=== PATIENT | male | born 1990 | race Caucasian/White ===

== ENCOUNTER 2018-08-13 13:34 | Observation (INO) | payer OTHER ==
[~2018-08-13] VITALS: Ht 167.6 cm; Wt 141.5 kg
[2018-08-13] MEDS ORDERED: IV NORMAL SALINE 1000ML BAG 1,000 ML IV ONE (15:45)
--- NOTE | 2018-08-13 15:50 | PHYS DOC ---
Past Medical History Past Medical History: Bipolar, Hypertension, Other Additional Past Medical Histor: ALLERGIES Past Surgical History: Appendectomy Alcohol Use: Occasionally Drug Use: None Adult General Chief Complaint Chief Complaint: DIZZY/LIGHT HEADED HPI HPI 27-year-old male presents to ER with complaints of dizziness, headache, and ringing in his ears which started this morning and has been progressively worsening. Patient reports symptoms were sudden in onset this morning denies any other family members ill at home. Patient states he has had positional dizziness denies vision changes, chest pain, or palpitations. Patient denies nausea or vomiting. Patient reports he had pretzels for breakfast and has been drinking water denies large caffeine intake. Patient reports 2 months ago he was started on propranolol 60 mg pain blood pressure issues and bloody nose. Patient denies any bloody nose today. Patient denies daily smoking. 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 Orthostatic vital signs obtained during initial exam by this provider: Supine BP 143/80 HR 74 Sitting BP 152/94 HR 95 Standing BP 152/100 HR 94 Review of Systems Review of Systems Constitutional: Denies fever or chills. Reports generalized fatigue Eyes: Denies change in visual acuity, redness, or eye pain [] HENT: Denies nasal congestion or sore throat. Reports ringing in his ears Respiratory: Denies cough or shortness of breath [] Cardiovascular: Denies chest pain or palpitations GI: Denies abdominal pain, nausea, vomiting, bloody stools or diarrhea [] : Denies dysuria or hematuria [] Musculoskeletal: Denies back/neck pain or joint pain [] Integument: Denies rash, swelling or skin lesions [] Neurologic: Denies focal weakness or sensory changes. Reports headache with dizziness which increases with position changes All other systems were reviewed and found to be within normal limits, except as documented in this note. Current Medications Current Medications Current Medications Medications (Trade) Dose Ordered Sig/Ro Start Time Stop Time Status Last Admin Dose Admin Sodium Chloride 1,000 ml @ 1,000 mls/hr 1X ONCE 08/13/18 15:45 08/13/18 16:44 DC 08/13/18 15:47 1,000 MLS/HR Allergies Allergies Allergies Coded Allergies Type Severity Reaction Last Updated Verified No Known Drug Allergies 08/13/18 No Physical Exam Physical Exam Constitutional: Well developed, well nourished, no acute distress, non-toxic appearance. [] HENT: Normocephalic, atraumatic, bilateral external ears normal, oropharynx moist, no oral exudates, nose normal. [] Eyes: PERRLA, EOMI, conjunctiva normal, no discharge. [] Neck: Normal range of motion, no tenderness, supple, no stridor. [] Cardiovascular:Heart rate regular rhythm, no murmur [] Lungs & Thorax: Bilateral breath sounds clear to auscultation [] Abdomen: Bowel sounds normal, soft, no tenderness, no masses, no pulsatile masses. [] Skin: Warm, dry, no erythema, no rash. [] Back: No tenderness, no CVA tenderness. [] Extremities: No tenderness, no cyanosis, no clubbing, ROM intact, no edema. [] Neurologic: Alert and oriented X 3, normal motor function, normal sensory function, no focal deficits noted. [] Psychologic: Affect normal, judgement normal, mood normal. [] Current Patient Data Vital Signs Vital Signs Date Time Temp Pulse Resp B/P (MAP) Pulse Ox O2 Delivery O2 Flow Rate FiO2 08/13/18 14:05 98.8 76 20 120/79 (93) 95 Room Air 98.8 Lab Values Laboratory Tests Test 08/13/18 14:44 08/13/18 15:32 08/13/18 15:38 Urine Collection Type Unknown Urine Color Yellow Urine Clarity Clear Urine pH 7.0 Urine Specific [place] 1.025 Urine Protein Negative mg/dL (NEG-TRACE) Urine Glucose (UA) Negative mg/dL (NEG) Urine Ketones (Stick) Negative mg/dL (NEG) Urine Blood Negative (NEG) Urine Nitrite Negative (NEG) Urine Bilirubin Negative (NEG) Urine Urobilinogen Dipstick 0.2 mg/dL (0.2 mg/dL) Urine Leukocyte Esterase Negative (NEG) Urine RBC 0 /HPF (0-2) Urine WBC 0 /HPF (0-4) Urine Squamous Epithelial Cells Occ /LPF Urine Bacteria 0 /HPF (0-FEW) Urine Mucus Marked /LPF Sodium Level 142 mmol/L (136-145) Potassium Level 4.3 mmol/L (3.5-5.1) Chloride Level 103 mmol/L (98-107) Carbon Dioxide Level 26 mmol/L (21-32) Anion Gap 13 (6-14) Blood Urea Nitrogen 15 mg/dL (8-26) Creatinine 0.9 mg/dL (0.7-1.3) Estimated GFR (Cockcroft-Gault) 102.0 BUN/Creatinine Ratio 17 (6-20) Glucose Level 90 mg/dL (70-99) Calcium Level 9.5 mg/dL (8.5-10.1) Magnesium Level 2.1 mg/dL (1.8-2.4) Total Bilirubin 0.4 mg/dL (0.2-1.0) Aspartate Amino Transferase (AST) 25 U/L (15-37) Alanine Aminotransferase (ALT) 39 U/L (16-63) Alkaline Phosphatase 57 U/L (46-116) Troponin I Quantitative < 0.017 ng/mL (0.000-0.055) Total Protein 7.6 g/dL (6.4-8.2) Albumin 4.2 g/dL (3.4-5.0) Albumin/Globulin Ratio 1.2 (1.0-1.7) White Blood Count 9.4 x10^3/uL (4.0-11.0) Red Blood Count 4.77 x10^6/uL (4.30-5.70) Hemoglobin 14.1 g/dL (13.0-17.5) Hematocrit 42.0 % (39.0-53.0) Mean Corpuscular Volume 88 fL (79-100) Mean Corpuscular Hemoglobin 30 pg (25-35) Mean Corpuscular Hemoglobin Concent 34 g/dL (31-37) Red Cell Distribution Width 13.3 % (11.5-14.5) Platelet Count 259 x10^3/uL (140-400) Neutrophils (%) (Auto) 66 % (31-73) Lymphocytes (%) (Auto) 26 % (24-48) Monocytes (%) (Auto) 6 % (0-9) Eosinophils (%) (Auto) 2 % (0-3) Basophils (%) (Auto) 1 % (0-3) Neutrophils # (Auto) 6.2 x10^3uL (1.8-7.7) Lymphocytes # (Auto) 2.4 x10^3/uL (1.0-4.8) Monocytes # (Auto) 0.6 x10^3/uL (0.0-1.1) Eosinophils # (Auto) 0.1 x10^3/uL (0.0-0.7) Basophils # (Auto) 0.1 x10^3/uL (0.0-0.2) Influenza Type A Antigen Negative (NEGATIVE) Influenza Type B Antigen Negative (NEGATIVE) Laboratory Tests 08/13/18 15:32 Laboratory Tests 08/13/18 14:44 EKG EKG EKG obtained 08/13/18 at [address] Thomas Sinus rhythm Leftward axis Rate 72 Radiology/Procedures Radiology/Procedures PROCEDURE: CT HEAD WO CONTRAST Examination: CT HEAD WO CONTRAST History: IRENE, DIZZINESS, NO PRIORS Comparison/Correlation: None Findings: Axial images of the head were obtained without contrast. Ventricles are normal size. No intracranial hemorrhage, midline shift, or mass effect. Bony structures are intact. Impression: Normal CT head without contrast exam. Electronically signed by: Ernie Marquez MD (08/13/2018 5:03 PM) [facility] DICTATED and SIGNED BY: JERICA MUKHERJEE MD DATE: 08/13/18 170 Course & Med Decision Making Course & Med Decision Making Pertinent Labs and Imaging studies reviewed. (See chart for details) 1630: On reevaluation following IV fluids patient reports he had minimal relief in symptoms. Patient states he is still not feeling right with intermittent dizziness. Patient has improved facial skin tone as he was flushed during initial exam. Will obtain head CT and admission was offered for further monitoring. Both patient and his are considering this option. Since patient has only had pretzels today will provide snacks and fluids and see if symptoms improve with that. 1750: Discussed CT head results with pt and his with no acute findings. Pt remains A&Ox3 with no focal neuro deficits. He voices concerns on his ongoing "feeling off" and "not right" although he has had some improvement in sxs w/IV flds and after eating. He reports he still is having some dizziness denying vision changes. Spoke with Dr. Davenport, hospitalist and discussed pt's case and admit plan. Liya Disclaimer Liya Disclaimer This electronic medical record was generated, in whole or in part, using a voice recognition dictation system. Departure Departure Impression: Primary Impression: Orthostatic dizziness Disposition: ADMITTED INPATIENT Admitting Physician: Betty Davenport Condition: STABLE Referrals: UNKNOWN PCP NAME (PCP) OUMAR COON APRN Aug 13, 2018 15:50
[2018-08-13 15:54] LABS: BASO # 0.1 x10^3/uL (0.0-0.2); BASO % 1 % (0-3); EOS # 0.1 x10^3/uL (0.0-0.7); EOS % 2 % (0-3); HEMOGLOBIN 14.1 g/dL (13.0-17.5); LYMPH # 2.4 x10^3/uL (1.0-4.8); LYMPH % 26 % (24-48); MEAN CORPUSCULAR HEMOGLOBIN 30 pg (25-35); MEAN CORPUSCULAR HGB CONC 34 g/dL (31-37); MEAN CORPUSCULAR VOLUME 88 fL (79-100); MONO # 0.6 x10^3/uL (0.0-1.1); MONO % 6 % (0-9); NEUT # 6.2 x10^3uL (1.8-7.7); NEUT % 66 % (31-73); PLATELET COUNT 259 x10^3/uL (140-400); RED BLOOD COUNT 4.77 x10^6/uL (4.30-5.70); RED CELL DISTRIBUTION WIDTH 13.3 % (11.5-14.5); WHITE BLOOD COUNT 9.4 x10^3/uL (4.0-11.0)
[2018-08-13 15:56] LABS: BILIRUBIN,URINE NEGATIVE (NEG); CLARITY,URINE CLEAR; COLOR,URINE YELLOW; NITRITE,URINE NEGATIVE (NEG); PROTEIN,URINE NEGATIVE (NEG-TRACE); UROBILINOGEN,URINE 0.2 mg/dL (0.2 mg/dL)
--- NOTE | 2018-08-13 16:01 | EKG ---
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
[2018-08-13 16:06] LABS: CALCIUM 9.5 mg/dL (8.5-10.1); CREATININE 0.9 mg/dL (0.7-1.3); POTASSIUM 4.3 mmol/L (3.5-5.1)
[2018-08-13 16:07] LABS: BACTERIA,URINE 0 /HPF (0-FEW); RBC,URINE 0 /HPF (0-2); SQUAMOUS EPITHELIAL CELL,UR OCC /LPF; WBC,URINE 0 /HPF (0-4)
[2018-08-13 16:17] LABS: ALBUMIN 4.2 g/dL (3.4-5.0); ALBUMIN/GLOBULIN RATIO 1.2 (1.0-1.7); MAGNESIUM 2.1 mg/dL (1.8-2.4); TOTAL BILIRUBIN 0.4 mg/dL (0.2-1.0); TOTAL PROTEIN 7.6 g/dL (6.4-8.2)
[2018-08-13 16:19] LABS: INFLUENZA A PATIENT NEGATIVE (NEGATIVE); INFLUENZA B PATIENT NEGATIVE (NEGATIVE)
--- NOTE | 2018-08-13 17:07 | RAD ---
Examination: CT HEAD WO CONTRAST History: IRENE, DIZZINESS, NO PRIORS Comparison/Correlation: None Findings: Axial images of the head were obtained without contrast. Ventricles are normal size. No intracranial hemorrhage, midline shift, or mass effect. Bony structures are intact. Impression: Normal CT head without contrast exam. Electronically signed by: Ernie Marquez MD (08/13/2018 5:03 PM) [facility]
[2018-08-13] MEDS: IV NORMAL SALINE 1000ML BAG 1,000 ML IV SCH (21:09)
[2018-08-13] MEDS: ACETAMINOPHEN 500 MG TABLET PO PRN (21:09)
[2018-08-13] MEDS ORDERED: FLUO40CA2 PO (22:17)
[2018-08-13] MEDS ORDERED: LAMO100T PO (22:17)
[2018-08-13] MEDS ORDERED: PROP60CA PO (22:17)
[2018-08-13] MEDS ORDERED: CETI10TA16 PO (22:17)
[2018-08-13 23:06] VITALS: BP 126/64
--- NOTE | 2018-08-13 23:19 | HP ---
ADMIT DATE: 08/13/2018 CHIEF COMPLAINT: Dizziness. HISTORY OF PRESENT ILLNESS: The patient is a pleasant 27-year-old male who has bipolar disease, who presents to the ER with a headache and dizziness. He has got some ringing in his ears. Think, he is little stressed, states he works at the [employer] in [place] and this is bringing on more stress. Symptoms worsened this morning. He increased his home meds but that did not work, describes as agonizing. I discussed the case with the ER physician. We are going to admit the patient and consult Neurology. PAST MEDICAL HISTORY: Bipolar, hypertension and appendectomy. ALLERGIES: None. FAMILY HISTORY: Hypertension. SOCIAL HISTORY: He works at the [employer]. He does not drink, smoke or take drugs. MEDICATIONS: Reviewed, please refer to the MRAD. REVIEW OF SYSTEMS: GENERAL: No history of weight change, weakness or fevers. SKIN: No bruising, hair changes or rashes. EYES: No blurred, double or loss of vision. NOSE AND THROAT: No history of nosebleeds, hoarseness or sore throat. HEART: No history of palpitations, chest pain or shortness of breath on exertion. LUNGS: Denies cough, hemoptysis, wheezing or shortness of breath. GASTROINTESTINAL: Denies changes in appetite, nausea, vomiting, diarrhea or constipation. GENITOURINARY: No history of frequency, urgency, hesitancy or nocturia. NEUROLOGICAL: The patient complains of dizziness and headaches. PSYCHIATRIC: No history of panic, anxiety or depression. ENDOCRINE: No history of heat or cold intolerance, polyuria or polydipsia. EXTREMITIES: Denies muscle weakness, joint pain, pain on walking or stiffness. PHYSICAL EXAMINATION: VITAL SIGNS: Temperature afebrile, pulse 92, respirations 18 and blood pressure 144/90. GENERAL: He is alert, cooperative and pleasant. HEART: Normal S1 and S2. LUNGS: Clear. ABDOMEN: Soft. EXTREMITIES: No edema. SKIN: No rashes. ENDOCRINE: No thyromegaly. LYMPHATICS: No cervical nodes. HEMATOPOIETIC: No bruising. LABORATORY DATA: Electrolytes are normal. RADIOLOGICAL DATA: CT of the head is negative. ASSESSMENT AND PLAN: Dizziness and headache. The patient has been admitted. We will consult Neurology. Continue his home meds, frequent labs, PT and OT. NIAL Fina CABRERA DO DR: Cece JOB#: [id number] / [id number]
[2018-08-14] VITALS (7 sets, daily range): BP systolic 101–152; BP diastolic 50–90
[2018-08-14] MEDS: IV NORMAL SALINE 1000ML BAG 1,000 ML IV SCH ×2 (04:47→21:08)
[2018-08-14 05:22] LABS: BASO % 1 % (0-3); EOS # 0.2 x10^3/uL (0.0-0.7); EOS % 2 % (0-3); HEMATOCRIT 39.9 % (39.0-53.0); HEMOGLOBIN 13.7 g/dL (13.0-17.5); LYMPH % 36 % (24-48); MEAN CORPUSCULAR HEMOGLOBIN 31 pg (25-35); MEAN CORPUSCULAR HGB CONC 34 g/dL (31-37); MEAN CORPUSCULAR VOLUME 89 fL (79-100); MONO # 0.7 x10^3/uL (0.0-1.1); MONO % 8 % (0-9); NEUT # 4.3 x10^3uL (1.8-7.7); NEUT % 53 % (31-73); PLATELET COUNT 222 x10^3/uL (140-400); RED BLOOD COUNT 4.48 x10^6/uL (4.30-5.70); RED CELL DISTRIBUTION WIDTH 13.5 % (11.5-14.5); WHITE BLOOD COUNT 8.3 x10^3/uL (4.0-11.0)
[2018-08-14 05:39] LABS: GFR 90.3; POTASSIUM 3.7 mmol/L (3.5-5.1)
--- NOTE | 2018-08-14 11:21 | PDOC ---
PROGRESS NOTES History of Present Illness History of Present Illness ASSESSMENT AND PLAN: Dizziness and headache. MORBID OBESITY ORTHOSTASIS STRESS AND ANXIETY admitted. consult Neurology. home meds, ORTHOSTATIC BP frequent labs, PT and OT. Vitals Vitals Vital Signs Date Time Temp Pulse Resp B/P (MAP) Pulse Ox O2 Delivery O2 Flow Rate FiO2 08/14/18 07:00 98.5 77 20 114/50 (71) 96 Room Air 98.5 Physical Exam General: Alert, Oriented X3, Cooperative, No acute distress Heart: Regular rate, Normal S1, Normal S2, No murmurs Lungs: Clear Abdomen: Normal bowel sounds, Soft Extremities: No clubbing, No cyanosis Skin: No significant lesion Labs LABS Examination: CT HEAD WO CONTRAST History: IRENE, DIZZINESS, NO PRIORS Comparison/Correlation: None Findings: Axial images of the head were obtained without contrast. Ventricles are normal size. No intracranial hemorrhage, midline shift, or mass effect. Bony structures are intact. Impression: Normal CT head without contrast exam. Electronically signed by: Ernie Marquez MD (08/13/2018 5:03 PM) [facility] Laboratory Tests Test 08/13/18 14:44 08/13/18 15:32 08/13/18 15:38 08/14/18 03:30 Urine Collection Type Unknown Urine Color Yellow Urine Clarity Clear Urine pH 7.0 Urine Specific [place] 1.025 Urine Protein Negative mg/dL (NEG-TRACE) Urine Glucose (UA) Negative mg/dL (NEG) Urine Ketones (Stick) Negative mg/dL (NEG) Urine Blood Negative (NEG) Urine Nitrite Negative (NEG) Urine Bilirubin Negative (NEG) Urine Urobilinogen Dipstick 0.2 mg/dL (0.2 mg/dL) Urine Leukocyte Esterase Negative (NEG) Urine RBC 0 /HPF (0-2) Urine WBC 0 /HPF (0-4) Urine Squamous Epithelial Cells Occ /LPF Urine Bacteria 0 /HPF (0-FEW) Urine Mucus Marked /LPF Sodium Level 142 mmol/L (136-145) 143 mmol/L (136-145) Potassium Level 4.3 mmol/L (3.5-5.1) 3.7 mmol/L (3.5-5.1) Chloride Level 103 mmol/L (98-107) 105 mmol/L (98-107) Carbon Dioxide Level 26 mmol/L (21-32) 29 mmol/L (21-32) Anion Gap 13 (6-14) 9 (6-14) Blood Urea Nitrogen 15 mg/dL (8-26) 18 mg/dL (8-26) Creatinine 0.9 mg/dL (0.7-1.3) 1.0 mg/dL (0.7-1.3) Estimated GFR (Cockcroft-Gault) 102.0 90.3 BUN/Creatinine Ratio 17 (6-20) Glucose Level 90 mg/dL (70-99) 85 mg/dL (70-99) Calcium Level 9.5 mg/dL (8.5-10.1) 9.0 mg/dL (8.5-10.1) Magnesium Level 2.1 mg/dL (1.8-2.4) Total Bilirubin 0.4 mg/dL (0.2-1.0) Aspartate Amino Transf (AST/SGOT) 25 U/L (15-37) Alanine Aminotransferase (ALT/SGPT) 39 U/L (16-63) Alkaline Phosphatase 57 U/L (46-116) Troponin I Quantitative < 0.017 ng/mL (0.000-0.055) Total Protein 7.6 g/dL (6.4-8.2) Albumin 4.2 g/dL (3.4-5.0) Albumin/Globulin Ratio 1.2 (1.0-1.7) White Blood Count 9.4 x10^3/uL (4.0-11.0) 8.3 x10^3/uL (4.0-11.0) Red Blood Count 4.77 x10^6/uL (4.30-5.70) 4.48 x10^6/uL (4.30-5.70) Hemoglobin 14.1 g/dL (13.0-17.5) 13.7 g/dL (13.0-17.5) Hematocrit 42.0 % (39.0-53.0) 39.9 % (39.0-53.0) Mean Corpuscular Volume 88 fL (79-100) 89 fL (79-100) Mean Corpuscular Hemoglobin 30 pg (25-35) 31 pg (25-35) Mean Corpuscular Hemoglobin Concent 34 g/dL (31-37) 34 g/dL (31-37) Red Cell Distribution Width 13.3 % (11.5-14.5) 13.5 % (11.5-14.5) Platelet Count 259 x10^3/uL (140-400) 222 x10^3/uL (140-400) Neutrophils (%) (Auto) 66 % (31-73) 53 % (31-73) Lymphocytes (%) (Auto) 26 % (24-48) 36 % (24-48) Monocytes (%) (Auto) 6 % (0-9) 8 % (0-9) Eosinophils (%) (Auto) 2 % (0-3) 2 % (0-3) Basophils (%) (Auto) 1 % (0-3) 1 % (0-3) Neutrophils # (Auto) 6.2 x10^3uL (1.8-7.7) 4.3 x10^3uL (1.8-7.7) Lymphocytes # (Auto) 2.4 x10^3/uL (1.0-4.8) 3.0 x10^3/uL (1.0-4.8) Monocytes # (Auto) 0.6 x10^3/uL (0.0-1.1) 0.7 x10^3/uL (0.0-1.1) Eosinophils # (Auto) 0.1 x10^3/uL (0.0-0.7) 0.2 x10^3/uL (0.0-0.7) Basophils # (Auto) 0.1 x10^3/uL (0.0-0.2) 0.0 x10^3/uL (0.0-0.2) Influenza Type A Antigen Negative (NEGATIVE) Influenza Type B Antigen Negative (NEGATIVE) Review of Systems Review of Systems PAST MEDICAL HISTORY: Bipolar, hypertension and appendectomy. ALLERGIES: None. FAMILY HISTORY: Hypertension. SOCIAL HISTORY: He works at the retirement. He does not drink, smoke or take drugs. MEDICATIONS: Reviewed, please refer to the MRAD. REVIEW OF SYSTEMS: GENERAL: No history of weight change, weakness or fevers. SKIN: No bruising, hair changes or rashes. EYES: No blurred, double or loss of vision. NOSE AND THROAT: No history of nosebleeds, hoarseness or sore throat. HEART: No history of palpitations, chest pain or shortness of breath on exertion. LUNGS: Denies cough, hemoptysis, wheezing or shortness of breath. GASTROINTESTINAL: Denies changes in appetite, nausea, vomiting, diarrhea or constipation. GENITOURINARY: No history of frequency, urgency, hesitancy or nocturia. NEUROLOGICAL: The patient complains of dizziness and headaches. Assessment and Plan Assessmemt and Plan Problems Medical Problems: (1) Orthostatic dizziness Status: Acute Comment Review of Relevant I have reviewed the following items jesus (where applicable) has been applied. Labs Laboratory Tests Test 08/13/18 14:44 08/13/18 15:32 08/13/18 15:38 08/14/18 03:30 Urine Collection Type Unknown Urine Color Yellow Urine Clarity Clear Urine pH 7.0 Urine Specific [place] 1.025 Urine Protein Negative mg/dL (NEG-TRACE) Urine Glucose (UA) Negative mg/dL (NEG) Urine Ketones (Stick) Negative mg/dL (NEG) Urine Blood Negative (NEG) Urine Nitrite Negative (NEG) Urine Bilirubin Negative (NEG) Urine Urobilinogen Dipstick 0.2 mg/dL (0.2 mg/dL) Urine Leukocyte Esterase Negative (NEG) Urine RBC 0 /HPF (0-2) Urine WBC 0 /HPF (0-4) Urine Squamous Epithelial Cells Occ /LPF Urine Bacteria 0 /HPF (0-FEW) Urine Mucus Marked /LPF Sodium Level 142 mmol/L (136-145) 143 mmol/L (136-145) Potassium Level 4.3 mmol/L (3.5-5.1) 3.7 mmol/L (3.5-5.1) Chloride Level 103 mmol/L (98-107) 105 mmol/L (98-107) Carbon Dioxide Level 26 mmol/L (21-32) 29 mmol/L (21-32) Anion Gap 13 (6-14) 9 (6-14) Blood Urea Nitrogen 15 mg/dL (8-26) 18 mg/dL (8-26) Creatinine 0.9 mg/dL (0.7-1.3) 1.0 mg/dL (0.7-1.3) Estimated GFR (Cockcroft-Gault) 102.0 90.3 BUN/Creatinine Ratio 17 (6-20) Glucose Level 90 mg/dL (70-99) 85 mg/dL (70-99) Calcium Level 9.5 mg/dL (8.5-10.1) 9.0 mg/dL (8.5-10.1) Magnesium Level 2.1 mg/dL (1.8-2.4) Total Bilirubin 0.4 mg/dL (0.2-1.0) Aspartate Amino Transf (AST/SGOT) 25 U/L (15-37) Alanine Aminotransferase (ALT/SGPT) 39 U/L (16-63) Alkaline Phosphatase 57 U/L (46-116) Troponin I Quantitative < 0.017 ng/mL (0.000-0.055) Total Protein 7.6 g/dL (6.4-8.2) Albumin 4.2 g/dL (3.4-5.0) Albumin/Globulin Ratio 1.2 (1.0-1.7) White Blood Count 9.4 x10^3/uL (4.0-11.0) 8.3 x10^3/uL (4.0-11.0) Red Blood Count 4.77 x10^6/uL (4.30-5.70) 4.48 x10^6/uL (4.30-5.70) Hemoglobin 14.1 g/dL (13.0-17.5) 13.7 g/dL (13.0-17.5) Hematocrit 42.0 % (39.0-53.0) 39.9 % (39.0-53.0) Mean Corpuscular Volume 88 fL (79-100) 89 fL (79-100) Mean Corpuscular Hemoglobin 30 pg (25-35) 31 pg (25-35) Mean Corpuscular Hemoglobin Concent 34 g/dL (31-37) 34 g/dL (31-37) Red Cell Distribution Width 13.3 % (11.5-14.5) 13.5 % (11.5-14.5) Platelet Count 259 x10^3/uL (140-400) 222 x10^3/uL (140-400) Neutrophils (%) (Auto) 66 % (31-73) 53 % (31-73) Lymphocytes (%) (Auto) 26 % (24-48) 36 % (24-48) Monocytes (%) (Auto) 6 % (0-9) 8 % (0-9) Eosinophils (%) (Auto) 2 % (0-3) 2 % (0-3) Basophils (%) (Auto) 1 % (0-3) 1 % (0-3) Neutrophils # (Auto) 6.2 x10^3uL (1.8-7.7) 4.3 x10^3uL (1.8-7.7) Lymphocytes # (Auto) 2.4 x10^3/uL (1.0-4.8) 3.0 x10^3/uL (1.0-4.8) Monocytes # (Auto) 0.6 x10^3/uL (0.0-1.1) 0.7 x10^3/uL (0.0-1.1) Eosinophils # (Auto) 0.1 x10^3/uL (0.0-0.7) 0.2 x10^3/uL (0.0-0.7) Basophils # (Auto) 0.1 x10^3/uL (0.0-0.2) 0.0 x10^3/uL (0.0-0.2) Influenza Type A Antigen Negative (NEGATIVE) Influenza Type B Antigen Negative (NEGATIVE) Laboratory Tests Test 08/13/18 14:44 08/13/18 15:32 08/13/18 15:38 08/14/18 03:30 Urine Collection Type Unknown Urine Color Yellow Urine Clarity Clear Urine pH 7.0 Urine Specific [place] 1.025 Urine Protein Negative mg/dL (NEG-TRACE) Urine Glucose (UA) Negative mg/dL (NEG) Urine Ketones (Stick) Negative mg/dL (NEG) Urine Blood Negative (NEG) Urine Nitrite Negative (NEG) Urine Bilirubin Negative (NEG) Urine Urobilinogen Dipstick 0.2 mg/dL (0.2 mg/dL) Urine Leukocyte Esterase Negative (NEG) Urine RBC 0 /HPF (0-2) Urine WBC 0 /HPF (0-4) Urine Squamous Epithelial Cells Occ /LPF Urine Bacteria 0 /HPF (0-FEW) Urine Mucus Marked /LPF Sodium Level 142 mmol/L (136-145) 143 mmol/L (136-145) Potassium Level 4.3 mmol/L (3.5-5.1) 3.7 mmol/L (3.5-5.1) Chloride Level 103 mmol/L (98-107) 105 mmol/L (98-107) Carbon Dioxide Level 26 mmol/L (21-32) 29 mmol/L (21-32) Anion Gap 13 (6-14) 9 (6-14) Blood Urea Nitrogen 15 mg/dL (8-26) 18 mg/dL (8-26) Creatinine 0.9 mg/dL (0.7-1.3) 1.0 mg/dL (0.7-1.3) Estimated GFR (Cockcroft-Gault) 102.0 90.3 BUN/Creatinine Ratio 17 (6-20) Glucose Level 90 mg/dL (70-99) 85 mg/dL (70-99) Calcium Level 9.5 mg/dL (8.5-10.1) 9.0 mg/dL (8.5-10.1) Magnesium Level 2.1 mg/dL (1.8-2.4) Total Bilirubin 0.4 mg/dL (0.2-1.0) Aspartate Amino Transf (AST/SGOT) 25 U/L (15-37) Alanine Aminotransferase (ALT/SGPT) 39 U/L (16-63) Alkaline Phosphatase 57 U/L (46-116) Troponin I Quantitative < 0.017 ng/mL (0.000-0.055) Total Protein 7.6 g/dL (6.4-8.2) Albumin 4.2 g/dL (3.4-5.0) Albumin/Globulin Ratio 1.2 (1.0-1.7) White Blood Count 9.4 x10^3/uL (4.0-11.0) 8.3 x10^3/uL (4.0-11.0) Red Blood Count 4.77 x10^6/uL (4.30-5.70) 4.48 x10^6/uL (4.30-5.70) Hemoglobin 14.1 g/dL (13.0-17.5) 13.7 g/dL (13.0-17.5) Hematocrit 42.0 % (39.0-53.0) 39.9 % (39.0-53.0) Mean Corpuscular Volume 88 fL (79-100) 89 fL (79-100) Mean Corpuscular Hemoglobin 30 pg (25-35) 31 pg (25-35) Mean Corpuscular Hemoglobin Concent 34 g/dL (31-37) 34 g/dL (31-37) Red Cell Distribution Width 13.3 % (11.5-14.5) 13.5 % (11.5-14.5) Platelet Count 259 x10^3/uL (140-400) 222 x10^3/uL (140-400) Neutrophils (%) (Auto) 66 % (31-73) 53 % (31-73) Lymphocytes (%) (Auto) 26 % (24-48) 36 % (24-48) Monocytes (%) (Auto) 6 % (0-9) 8 % (0-9) Eosinophils (%) (Auto) 2 % (0-3) 2 % (0-3) Basophils (%) (Auto) 1 % (0-3) 1 % (0-3) Neutrophils # (Auto) 6.2 x10^3uL (1.8-7.7) 4.3 x10^3uL (1.8-7.7) Lymphocytes # (Auto) 2.4 x10^3/uL (1.0-4.8) 3.0 x10^3/uL (1.0-4.8) Monocytes # (Auto) 0.6 x10^3/uL (0.0-1.1) 0.7 x10^3/uL (0.0-1.1) Eosinophils # (Auto) 0.1 x10^3/uL (0.0-0.7) 0.2 x10^3/uL (0.0-0.7) Basophils # (Auto) 0.1 x10^3/uL (0.0-0.2) 0.0 x10^3/uL (0.0-0.2) Influenza Type A Antigen Negative (NEGATIVE) Influenza Type B Antigen Negative (NEGATIVE) Medications Current Medications Sodium Chloride 1,000 ml @ 1,000 mls/hr 1X ONCE IV Last administered on 08/13at 15:47; Start 08/13/18 at 15:45; Stop 08/13/18 at 16:44; Status DC Sodium Chloride 1,000 ml @ 100 mls/hr Q10H IV Last administered on 08/14/18at 04:47; Start 08/13/18 at 18:47; Stop 08/14/18 at 18:46 Acetaminophen (Tylenol) 1,000 mg PRN Q6HRS PRN PO PAIN Last administered on at 21:09; Start 08/13/18 at 20:45 Active Scripts Active Reported Propranolol Hcl 60 Mg Cap.sa.24h 60 Mg PO QHS Fluoxetine Hcl 40 Mg Capsule 1 Cap PO QHS Cetirizine Hcl 10 Mg Tablet 1 Tab PO QHS Lamotrigine 100 Mg Tablet 1 Tab PO BID Vitals/I & O Vital Sign - Last 24 Hours 08/13/18 08/13/18 08/13/18 08/13/18 14:05 15:23 15:24 15:25 Temp 98.8 98.8 Pulse 76 75 73 80 Resp 20 B/P (MAP) 120/79 (93) Pulse Ox 95 97 97 97 O2 Delivery Room Air 08/13/18 08/14/18 08/14/18 23:06 03:25 07:00 Temp 98.1 97.6 98.5 98.1 97.6 98.5 Pulse 81 68 77 Resp 20 20 20 B/P (MAP) 126/64 (84) 152/90 (110) 114/50 (71) Pulse Ox 96 97 96 O2 Delivery Room Air Room Air Room Air Intake and Output 08/13/18 08/13/18 08/14/18 15:01 23:01 07:01 Intake Total 1000 ml 1000 ml Output Total 0 ml Balance 1000 ml 1000 ml BEATRIZ CERRATO MD Aug 14, 2018 11:21
[2018-08-14] MEDS: lamoTRIgine 100 MG TABLET. PO SCH ×2 (12:00→21:11)
[2018-08-14] MEDS: ACETAMINOPHEN 500 MG TABLET PO PRN (14:06)
--- NOTE | 2018-08-14 14:37 | PDOC2 ---
NEUROLOGY CONSULT Date of Admission Date of Admission DATE: 08/14/18 TIME: 14:22 Reason for Consult Reason for Consult: IMPRESSION: Worsening of headaches. Dizziness, orthostatic type. Tinnitus. IIP? HTN. Bipolar disorder. Morbid obesity. RECOMMENDATIONS/PLAN: Pain control. Topamax 25 mg HS, Orth BP and HR. Brain MRI w/wo contrast. Lab: see orders. HISTORY OF THE PRESENT ILLNESS: 27-y-old male patient with history of chronic headaches for over one year, but his headaches became frequent almost on a daily basis recently. He also has symptoms of dizziness especially in standing position, high pitch tinnitus right > left. His headaches are described as pressure type of pain rated 6-9/10 associated with photophobia sometimes. He sees stats sometimes before and during headaches. No changes of vision. PAST MEDICAL HISTORY: Bipolar, hypertension and appendectomy. PAST SURGERY HISTORY: No major surgery recently. ALLERGIES: NKDA. FAMILY HISTORY: Hypertension. SOCIAL HISTORY: He works at long term. He does not drink, smoke or use drugs. MEDICATIONS: Refer to [facility] REVIEW OF SYSTEMS: Constitutional: Obesity. Head: No traumatic brain or head injury. Skin: No edema, or rash. Ear: Tinnitus. Eyes: No vision loss or color blindness. Nose: No bleeding or purulent discharges. Hearing: No hearing decrease. Neck: No injury. Cardiac: HTN. Pulmonary: No COPD. GI: No GI ulcer, GI bleeding. Urinary/genital: No dysuria, incontinence, urinary retention. Endocrinologic: Morbid obesity. Skeletomuscular: No muscular atrophy, deformity. Neurological: see HP. Psychiatric: Denies drug use/abuse. Otherwise, not [id number] review of systems. PHYSICAL EXAMINATION: General appearance is in subacute distress. HEENT: Normocephalic and nontraumatic. Eyes, nose, ears, and throat are unremarkable. Neck is supple. No lymphadenopathy. No bruits are heard over the carotid artery. No crepitus. Cardiovascular: S1, S2, regular rate and rhythm. Pulmonary: Clear to auscultation bilaterally. Abdomen: Bowel sounds are positive. Abdomen is soft, nontender, and nondistended. Extremities: No rash, lesions, or edema. No restriction of range of motion NEUROLOGICAL EXAMINATION: Alert Oriented to time, place and person. PERRL. EOMI. CN: no focal findings. Muscle tone: within normal. Muscle strength: 5 DTR: 2 Plantar reflex: Flexor response bilaterally Gait: not examined in bed. Sensory exam: no abnormal findings. No cerebellar signs elicited. F-T-N test accurate. Current Medications Current Medications Current Medications Sodium Chloride 1,000 ml @ 1,000 mls/hr 1X ONCE IV Last administered on 08/13at 15:47; Start 08/13/18 at 15:45; Stop 08/13/18 at 16:44; Status DC Sodium Chloride 1,000 ml @ 100 mls/hr Q10H IV Last administered on 08/14/18at 04:47; Start 08/13/18 at 18:47; Stop 08/14/18 at 18:46 Acetaminophen (Tylenol) 1,000 mg PRN Q6HRS PRN PO PAIN Last administered on at 14:06; Start 08/13/18 at 20:45 Cetirizine HCl (ZyrTEC) 10 mg QHS PO ; Start 08/14/18 at 21:00 Propranolol HCl (Inderal La) 60 mg QHS PO ; Start 08/14/18 at 21:00 Fluoxetine HCl (PROzac) 40 mg QHS PO ; Start 08/14/18 at 21:00 Lamotrigine (LaMICtal) 100 mg BID PO ; Start 08/14/18 at 12:00 Active Scripts Active Reported Propranolol Hcl 60 Mg Cap.sa.24h 60 Mg PO QHS Fluoxetine Hcl 40 Mg Capsule 1 Cap PO QHS Cetirizine Hcl 10 Mg Tablet 1 Tab PO QHS Lamotrigine 100 Mg Tablet 1 Tab PO HS Allergies Allergies: Allergies Coded Allergies Type Severity Reaction Last Updated Verified No Known Drug Allergies 08/13/18 No ROS Review of System The patient denies any associated fevers, chills, headache, ear pain, rhinorrhea , sore throat, stiff neck, productive cough, chest pain, shortness of breath, back or flank pain, abdominal pain, nausea, vomiting, diarrhea, constipation, dysuria, rash, numbness, weakness, tingling, incontinence, difficulty ambulating, or diaphoresis. Physical Exam Physical Exam General: Well developed, well nourished, no acute distress, well appearing HEENT: Pupils equally round and reactive to light, EOMI, no discharge, normal conjunctiva Neck: Supple, no nuchal rigidity, no JVD, trachea midline, no tenderness Cardiac: RRR, no murmurs, no gallops, no rubs Chest/Lungs: CTAB, no wheeze, no rhonchi, no crackles Abdomen: soft, non-distended, no guarding, no peritoneal signs, non-tender Back: No tenderness Extremities: no edema, pulses intact, non-tender,capillary refill <3 sec bilateral upper and lower extremities, Neuro: Alert and oriented x 4, no focal deficits, normal speech Vitals Vitals: Vital Signs Date Time Temp Pulse Resp B/P (MAP) Pulse Ox O2 Delivery O2 Flow Rate FiO2 08/14/18 11:50 70 101/67 (78) 08/14/18 11:00 97.9 14 96 Room Air 97.9 Labs Labs Laboratory Tests Test 08/13/18 14:44 08/13/18 15:32 08/13/18 15:38 08/14/18 03:30 Urine Collection Type Unknown Urine Color Yellow Urine Clarity Clear Urine pH 7.0 Urine Specific [place] 1.025 Urine Protein Negative mg/dL (NEG-TRACE) Urine Glucose (UA) Negative mg/dL (NEG) Urine Ketones (Stick) Negative mg/dL (NEG) Urine Blood Negative (NEG) Urine Nitrite Negative (NEG) Urine Bilirubin Negative (NEG) Urine Urobilinogen Dipstick 0.2 mg/dL (0.2 mg/dL) Urine Leukocyte Esterase Negative (NEG) Urine RBC 0 /HPF (0-2) Urine WBC 0 /HPF (0-4) Urine Squamous Epithelial Cells Occ /LPF Urine Bacteria 0 /HPF (0-FEW) Urine Mucus Marked /LPF Sodium Level 142 mmol/L (136-145) 143 mmol/L (136-145) Potassium Level 4.3 mmol/L (3.5-5.1) 3.7 mmol/L (3.5-5.1) Chloride Level 103 mmol/L (98-107) 105 mmol/L (98-107) Carbon Dioxide Level 26 mmol/L (21-32) 29 mmol/L (21-32) Anion Gap 13 (6-14) 9 (6-14) Blood Urea Nitrogen 15 mg/dL (8-26) 18 mg/dL (8-26) Creatinine 0.9 mg/dL (0.7-1.3) 1.0 mg/dL (0.7-1.3) Estimated GFR (Cockcroft-Gault) 102.0 90.3 BUN/Creatinine Ratio 17 (6-20) Glucose Level 90 mg/dL (70-99) 85 mg/dL (70-99) Calcium Level 9.5 mg/dL (8.5-10.1) 9.0 mg/dL (8.5-10.1) Magnesium Level 2.1 mg/dL (1.8-2.4) Total Bilirubin 0.4 mg/dL (0.2-1.0) Aspartate Amino Transf (AST/SGOT) 25 U/L (15-37) Alanine Aminotransferase (ALT/SGPT) 39 U/L (16-63) Alkaline Phosphatase 57 U/L (46-116) Troponin I Quantitative < 0.017 ng/mL (0.000-0.055) Total Protein 7.6 g/dL (6.4-8.2) Albumin 4.2 g/dL (3.4-5.0) Albumin/Globulin Ratio 1.2 (1.0-1.7) White Blood Count 9.4 x10^3/uL (4.0-11.0) 8.3 x10^3/uL (4.0-11.0) Red Blood Count 4.77 x10^6/uL (4.30-5.70) 4.48 x10^6/uL (4.30-5.70) Hemoglobin 14.1 g/dL (13.0-17.5) 13.7 g/dL (13.0-17.5) Hematocrit 42.0 % (39.0-53.0) 39.9 % (39.0-53.0) Mean Corpuscular Volume 88 fL (79-100) 89 fL (79-100) Mean Corpuscular Hemoglobin 30 pg (25-35) 31 pg (25-35) Mean Corpuscular Hemoglobin Concent 34 g/dL (31-37) 34 g/dL (31-37) Red Cell Distribution Width 13.3 % (11.5-14.5) 13.5 % (11.5-14.5) Platelet Count 259 x10^3/uL (140-400) 222 x10^3/uL (140-400) Neutrophils (%) (Auto) 66 % (31-73) 53 % (31-73) Lymphocytes (%) (Auto) 26 % (24-48) 36 % (24-48) Monocytes (%) (Auto) 6 % (0-9) 8 % (0-9) Eosinophils (%) (Auto) 2 % (0-3) 2 % (0-3) Basophils (%) (Auto) 1 % (0-3) 1 % (0-3) Neutrophils # (Auto) 6.2 x10^3uL (1.8-7.7) 4.3 x10^3uL (1.8-7.7) Lymphocytes # (Auto) 2.4 x10^3/uL (1.0-4.8) 3.0 x10^3/uL (1.0-4.8) Monocytes # (Auto) 0.6 x10^3/uL (0.0-1.1) 0.7 x10^3/uL (0.0-1.1) Eosinophils # (Auto) 0.1 x10^3/uL (0.0-0.7) 0.2 x10^3/uL (0.0-0.7) Basophils # (Auto) 0.1 x10^3/uL (0.0-0.2) 0.0 x10^3/uL (0.0-0.2) Influenza Type A Antigen Negative (NEGATIVE) Influenza Type B Antigen Negative (NEGATIVE) Laboratory Tests Test 08/13/18 14:44 08/13/18 15:32 08/13/18 15:38 08/14/18 03:30 Urine Collection Type Unknown Urine Color Yellow Urine Clarity Clear Urine pH 7.0 Urine Specific [place] 1.025 Urine Protein Negative mg/dL (NEG-TRACE) Urine Glucose (UA) Negative mg/dL (NEG) Urine Ketones (Stick) Negative mg/dL (NEG) Urine Blood Negative (NEG) Urine Nitrite Negative (NEG) Urine Bilirubin Negative (NEG) Urine Urobilinogen Dipstick 0.2 mg/dL (0.2 mg/dL) Urine Leukocyte Esterase Negative (NEG) Urine RBC 0 /HPF (0-2) Urine WBC 0 /HPF (0-4) Urine Squamous Epithelial Cells Occ /LPF Urine Bacteria 0 /HPF (0-FEW) Urine Mucus Marked /LPF Sodium Level 142 mmol/L (136-145) 143 mmol/L (136-145) Potassium Level 4.3 mmol/L (3.5-5.1) 3.7 mmol/L (3.5-5.1) Chloride Level 103 mmol/L (98-107) 105 mmol/L (98-107) Carbon Dioxide Level 26 mmol/L (21-32) 29 mmol/L (21-32) Anion Gap 13 (6-14) 9 (6-14) Blood Urea Nitrogen 15 mg/dL (8-26) 18 mg/dL (8-26) Creatinine 0.9 mg/dL (0.7-1.3) 1.0 mg/dL (0.7-1.3) Estimated GFR (Cockcroft-Gault) 102.0 90.3 BUN/Creatinine Ratio 17 (6-20) Glucose Level 90 mg/dL (70-99) 85 mg/dL (70-99) Calcium Level 9.5 mg/dL (8.5-10.1) 9.0 mg/dL (8.5-10.1) Magnesium Level 2.1 mg/dL (1.8-2.4) Total Bilirubin 0.4 mg/dL (0.2-1.0) Aspartate Amino Transf (AST/SGOT) 25 U/L (15-37) Alanine Aminotransferase (ALT/SGPT) 39 U/L (16-63) Alkaline Phosphatase 57 U/L (46-116) Troponin I Quantitative < 0.017 ng/mL (0.000-0.055) Total Protein 7.6 g/dL (6.4-8.2) Albumin 4.2 g/dL (3.4-5.0) Albumin/Globulin Ratio 1.2 (1.0-1.7) White Blood Count 9.4 x10^3/uL (4.0-11.0) 8.3 x10^3/uL (4.0-11.0) Red Blood Count 4.77 x10^6/uL (4.30-5.70) 4.48 x10^6/uL (4.30-5.70) Hemoglobin 14.1 g/dL (13.0-17.5) 13.7 g/dL (13.0-17.5) Hematocrit 42.0 % (39.0-53.0) 39.9 % (39.0-53.0) Mean Corpuscular Volume 88 fL (79-100) 89 fL (79-100) Mean Corpuscular Hemoglobin 30 pg (25-35) 31 pg (25-35) Mean Corpuscular Hemoglobin Concent 34 g/dL (31-37) 34 g/dL (31-37) Red Cell Distribution Width 13.3 % (11.5-14.5) 13.5 % (11.5-14.5) Platelet Count 259 x10^3/uL (140-400) 222 x10^3/uL (140-400) Neutrophils (%) (Auto) 66 % (31-73) 53 % (31-73) Lymphocytes (%) (Auto) 26 % (24-48) 36 % (24-48) Monocytes (%) (Auto) 6 % (0-9) 8 % (0-9) Eosinophils (%) (Auto) 2 % (0-3) 2 % (0-3) Basophils (%) (Auto) 1 % (0-3) 1 % (0-3) Neutrophils # (Auto) 6.2 x10^3uL (1.8-7.7) 4.3 x10^3uL (1.8-7.7) Lymphocytes # (Auto) 2.4 x10^3/uL (1.0-4.8) 3.0 x10^3/uL (1.0-4.8) Monocytes # (Auto) 0.6 x10^3/uL (0.0-1.1) 0.7 x10^3/uL (0.0-1.1) Eosinophils # (Auto) 0.1 x10^3/uL (0.0-0.7) 0.2 x10^3/uL (0.0-0.7) Basophils # (Auto) 0.1 x10^3/uL (0.0-0.2) 0.0 x10^3/uL (0.0-0.2) Influenza Type A Antigen Negative (NEGATIVE) Influenza Type B Antigen Negative (NEGATIVE) MARCK TY MD Aug 14, 2018 14:37
[2018-08-14] MEDS ORDERED: GADOBUTROL 10 MMOL/10 ML VIAL IV ONE (15:45)
--- NOTE | 2018-08-14 16:10 | RAD ---
MRI Brain with and without contrast History: Worsening headaches Technique: Multiplanar, multi sequential pre and postcontrast MR imaging was performed of the brain. Comparison: None Findings: There is mild motion. There is no evidence of recent infarct or cytotoxic edema. The ventricles, sulci, and cisterns are within normal limits in size and configuration. There is no significant midline shift, intraaxial mass effect, or focal abnormal extra-axial fluid collection. There is no significant signal abnormality of the brain parenchyma. There is no nodular parenchymal or leptomeningeal enhancement. There is preservation of the major intracranial flow-voids at the skull base. The cerebellar tonsils are normal in location. There is no significant abnormality of the pineal gland or pituitary gland. There is some patchy minimal ethmoid air cell mucosal thickening. There is mild deviation nasal septum to the left. Frontal sinus is not pneumatized. The mastoid air cells are aerated. There is preserved marrow signal of the clivus. Impression: 1. There is no significant intracranial abnormality. Electronically signed by: Constantine Shay MD (08/14/2018 4:06 PM) [id number]
[2018-08-14] MEDS ORDERED: PROPRANOLOL ER 60 MG CAP.SA.24H. PO SCH (21:00)
[2018-08-14] MEDS ORDERED: CETIRIZINE HCL 10 MG TABLET. PO SCH (21:00)
[2018-08-14] MEDS ORDERED: FLUoxetine HCL 20 MG CAPSULE PO SCH (21:00)
[2018-08-14] MEDS ORDERED: TOPIRAMATE 25 MG TABLET. PO SCH (21:00)
[2018-08-14] MEDS: MECLIZINE HCL 12.5 MG TABLET. PO SCH (21:11)
[2018-08-14 22:46] LABS: BARBITURATES NEG (NEG); BENZODIAZEPINES NEG (NEG); CANNABINOIDS NEG (NEG); COCAINE NEG (NEG); METHADONE NEG (NEG); OPIATES NEG (NEG); PHENCYCLIDINE NEG (NEG)
[2018-08-14 22:49] LABS: AMPHETAMINE/METHAMPHETAMINE NEG (NEG)
[2018-08-15 02:56] VITALS: BP 144/90
[2018-08-15 02:58] VITALS: BP_SYST 149; BP_SYST 163; BP_DIAS 92; BP_DIAS 97
[2018-08-15 07:00] VITALS: BP 150/99
[2018-08-15] MEDS: MECLIZINE HCL 12.5 MG TABLET. PO SCH (08:23)
[2018-08-15] MEDS: lamoTRIgine 100 MG TABLET. PO SCH (08:23)
--- NOTE | 2018-08-15 09:37 | PDOC ---
PROGRESS NOTES History of Present Illness History of Present Illness ASSESSMENT AND PLAN: Dizziness and headache. MORBID OBESITY ORTHOSTASIS STRESS AND ANXIETY UNCONTROLLED HYPERTENSION admitted. NORVASC 5 MG PO DAILY consult Neurology. home meds, ORTHOSTATIC BP frequent labs, PT and OT. HOME LATER TODAY IF OK WITH NEUROLOGY, CONSIDER PSYCHOTHERAPY FOR STRESS Vitals Vitals Vital Signs Date Time Temp Pulse Resp B/P (MAP) Pulse Ox O2 Delivery O2 Flow Rate FiO2 08/15/18 02:58 78 149/92 (111) 08/15/18 02:56 19 97 Room Air 08/14/18 23:00 98.0 98.0 Physical Exam General: Alert, Oriented X3, Cooperative, No acute distress Heart: Regular rate, Normal S1, Normal S2, No murmurs Lungs: Clear Abdomen: Normal bowel sounds, Soft Extremities: No clubbing, No cyanosis Skin: No significant lesion Labs LABS MRI Brain with and without contrast History: Worsening headaches Technique: Multiplanar, multi sequential pre and postcontrast MR imaging was performed of the brain. Comparison: None Findings: There is mild motion. There is no evidence of recent infarct or cytotoxic edema. The ventricles, sulci, and cisterns are within normal limits in size and configuration. There is no significant midline shift, intraaxial mass effect, or focal abnormal extra-axial fluid collection. There is no significant signal abnormality of the brain parenchyma. There is no nodular parenchymal or leptomeningeal enhancement. There is preservation of the major intracranial flow-voids at the skull base. The cerebellar tonsils are normal in location. There is no significant abnormality of the pineal gland or pituitary gland. There is some patchy minimal ethmoid air cell mucosal thickening. There is mild deviation nasal septum to the left. Frontal sinus is not pneumatized. The mastoid air cells are aerated. There is preserved marrow signal of the clivus. Impression: 1. There is no significant intracranial abnormality. Electronically signed by: Constantine Shay MD (08/14/2018 4:06 PM) [email or web address] Laboratory Tests Test 08/14/18 14:55 08/14/18 21:40 Erythrocyte Sedimentation Rate 10 (0-15) Urine Opiates Screen Neg (NEG) Urine Methadone Screen Neg (NEG) Urine Barbiturates Neg (NEG) Urine Phencyclidine Screen Neg (NEG) Urine Amphetamine/Methamphetamine Neg (NEG) Urine Benzodiazepines Screen Neg (NEG) Urine Cocaine Screen Neg (NEG) Urine Cannabinoids Screen Neg (NEG) Urine Ethyl Alcohol Neg (NEG) Assessment and Plan Assessmemt and Plan Problems Medical Problems: (1) Orthostatic dizziness Status: Acute Comment Review of Relevant I have reviewed the following items jesus (where applicable) has been applied. Labs Laboratory Tests Test 08/13/18 14:44 08/13/18 15:32 08/13/18 15:38 08/14/18 03:30 Urine Collection Type Unknown Urine Color Yellow Urine Clarity Clear Urine pH 7.0 Urine Specific [place] 1.025 Urine Protein Negative mg/dL (NEG-TRACE) Urine Glucose (UA) Negative mg/dL (NEG) Urine Ketones (Stick) Negative mg/dL (NEG) Urine Blood Negative (NEG) Urine Nitrite Negative (NEG) Urine Bilirubin Negative (NEG) Urine Urobilinogen Dipstick 0.2 mg/dL (0.2 mg/dL) Urine Leukocyte Esterase Negative (NEG) Urine RBC 0 /HPF (0-2) Urine WBC 0 /HPF (0-4) Urine Squamous Epithelial Cells Occ /LPF Urine Bacteria 0 /HPF (0-FEW) Urine Mucus Marked /LPF Sodium Level 142 mmol/L (136-145) 143 mmol/L (136-145) Potassium Level 4.3 mmol/L (3.5-5.1) 3.7 mmol/L (3.5-5.1) Chloride Level 103 mmol/L (98-107) 105 mmol/L (98-107) Carbon Dioxide Level 26 mmol/L (21-32) 29 mmol/L (21-32) Anion Gap 13 (6-14) 9 (6-14) Blood Urea Nitrogen 15 mg/dL (8-26) 18 mg/dL (8-26) Creatinine 0.9 mg/dL (0.7-1.3) 1.0 mg/dL (0.7-1.3) Estimated GFR (Cockcroft-Gault) 102.0 90.3 BUN/Creatinine Ratio 17 (6-20) Glucose Level 90 mg/dL (70-99) 85 mg/dL (70-99) Calcium Level 9.5 mg/dL (8.5-10.1) 9.0 mg/dL (8.5-10.1) Magnesium Level 2.1 mg/dL (1.8-2.4) Total Bilirubin 0.4 mg/dL (0.2-1.0) Aspartate Amino Transf (AST/SGOT) 25 U/L (15-37) Alanine Aminotransferase (ALT/SGPT) 39 U/L (16-63) Alkaline Phosphatase 57 U/L (46-116) Troponin I Quantitative < 0.017 ng/mL (0.000-0.055) Total Protein 7.6 g/dL (6.4-8.2) Albumin 4.2 g/dL (3.4-5.0) Albumin/Globulin Ratio 1.2 (1.0-1.7) White Blood Count 9.4 x10^3/uL (4.0-11.0) 8.3 x10^3/uL (4.0-11.0) Red Blood Count 4.77 x10^6/uL (4.30-5.70) 4.48 x10^6/uL (4.30-5.70) Hemoglobin 14.1 g/dL (13.0-17.5) 13.7 g/dL (13.0-17.5) Hematocrit 42.0 % (39.0-53.0) 39.9 % (39.0-53.0) Mean Corpuscular Volume 88 fL (79-100) 89 fL (79-100) Mean Corpuscular Hemoglobin 30 pg (25-35) 31 pg (25-35) Mean Corpuscular Hemoglobin Concent 34 g/dL (31-37) 34 g/dL (31-37) Red Cell Distribution Width 13.3 % (11.5-14.5) 13.5 % (11.5-14.5) Platelet Count 259 x10^3/uL (140-400) 222 x10^3/uL (140-400) Neutrophils (%) (Auto) 66 % (31-73) 53 % (31-73) Lymphocytes (%) (Auto) 26 % (24-48) 36 % (24-48) Monocytes (%) (Auto) 6 % (0-9) 8 % (0-9) Eosinophils (%) (Auto) 2 % (0-3) 2 % (0-3) Basophils (%) (Auto) 1 % (0-3) 1 % (0-3) Neutrophils # (Auto) 6.2 x10^3uL (1.8-7.7) 4.3 x10^3uL (1.8-7.7) Lymphocytes # (Auto) 2.4 x10^3/uL (1.0-4.8) 3.0 x10^3/uL (1.0-4.8) Monocytes # (Auto) 0.6 x10^3/uL (0.0-1.1) 0.7 x10^3/uL (0.0-1.1) Eosinophils # (Auto) 0.1 x10^3/uL (0.0-0.7) 0.2 x10^3/uL (0.0-0.7) Basophils # (Auto) 0.1 x10^3/uL (0.0-0.2) 0.0 x10^3/uL (0.0-0.2) Influenza Type A Antigen Negative (NEGATIVE) Influenza Type B Antigen Negative (NEGATIVE) Test 08/14/18 14:55 08/14/18 21:40 Erythrocyte Sedimentation Rate 10 (0-15) Urine Opiates Screen Neg (NEG) Urine Methadone Screen Neg (NEG) Urine Barbiturates Neg (NEG) Urine Phencyclidine Screen Neg (NEG) Urine Amphetamine/Methamphetamine Neg (NEG) Urine Benzodiazepines Screen Neg (NEG) Urine Cocaine Screen Neg (NEG) Urine Cannabinoids Screen Neg (NEG) Urine Ethyl Alcohol Neg (NEG) Laboratory Tests Test 08/14/18 14:55 08/14/18 21:40 Erythrocyte Sedimentation Rate 10 (0-15) Urine Opiates Screen Neg (NEG) Urine Methadone Screen Neg (NEG) Urine Barbiturates Neg (NEG) Urine Phencyclidine Screen Neg (NEG) Urine Amphetamine/Methamphetamine Neg (NEG) Urine Benzodiazepines Screen Neg (NEG) Urine Cocaine Screen Neg (NEG) Urine Cannabinoids Screen Neg (NEG) Urine Ethyl Alcohol Neg (NEG) Medications Current Medications Sodium Chloride 1,000 ml @ 1,000 mls/hr 1X ONCE IV Last administered on 08/13at 15:47; Start 08/13/18 at 15:45; Stop 08/13/18 at 16:44; Status DC Sodium Chloride 1,000 ml @ 100 mls/hr Q10H IV Last administered on 08/14/18at 21:08; Start 08/13/18 at 18:47; Stop 08/14/18 at 18:46; Status DC Acetaminophen (Tylenol) 1,000 mg PRN Q6HRS PRN PO PAIN Last administered on at 14:06; Start 08/13/18 at 20:45 Cetirizine HCl (ZyrTEC) 10 mg QHS PO Last administered on 08/14/18at 21:11; Start 08/14/18 at 21:00 Propranolol HCl (Inderal La) 60 mg QHS PO Last administered on 08/14/18at 21:10 ; Start 08/14/18 at 21:00 Fluoxetine HCl (PROzac) 40 mg QHS PO Last administered on 08/14/18at 21:11; Start 08/14/18 at 21:00 Lamotrigine (LaMICtal) 100 mg BID PO Last administered on 08/15/18at 08:23; Start 08/14/18 at 12:00 Topiramate (Topamax) 25 mg HS PO Last administered on 08/14/18at 21:11; Start 08/14/18 at 21:00 Gadobutrol (Gadavist) 10 mmol 1X ONCE IV Last administered on 08/14/18at 16:08 ; Start 08/14/18 at 15:45; Stop 08/14/18 at 15:46; Status DC Meclizine HCl (Antivert) 25 mg TID PO Last administered on 08/15/18at 08:23; Start 08/14/18 at 19:00 Active Scripts Active Reported Propranolol Hcl 60 Mg Cap.sa.24h 60 Mg PO QHS Fluoxetine Hcl 40 Mg Capsule 1 Cap PO QHS Cetirizine Hcl 10 Mg Tablet 1 Tab PO QHS Lamotrigine 100 Mg Tablet 1 Tab PO HS Vitals/I & O Vital Sign - Last 24 Hours 08/14/18 08/14/18 08/14/18 08/14/18 11:00 11:49 11:49 11:50 Temp 97.9 97.9 Pulse 72 74 76 70 Resp 14 B/P (MAP) 142/81 (101) 142/81 (101) 140/74 (96) 101/67 (78) Pulse Ox 96 O2 Delivery Room Air 08/14/18 08/14/18 08/14/18 08/14/18 19:00 20:00 21:10 23:00 Temp 98.1 98.0 98.1 98.0 Pulse 78 78 78 Resp 18 19 B/P (MAP) 151/72 (98) 151/72 148/82 (104) Pulse Ox 97 98 O2 Delivery Room Air Room Air Room Air 08/15/18 08/15/18 08/15/18 02:56 02:58 02:58 Pulse 65 82 78 Resp 19 B/P (MAP) 144/90 (108) 163/97 (119) 149/92 (111) Pulse Ox 97 O2 Delivery Room Air Intake and Output 08/14/18 08/14/18 08/15/18 15:00 23:00 07:00 Intake Total 360 ml 180 ml 840 ml Balance 360 ml 180 ml 840 ml BEATRIZ CERRATO MD Aug 15, 2018 09:37
[2018-08-15 10:10] VITALS: BP 143/89
[2018-08-15 10:11] VITALS: BP 127/94
[2018-08-15] MEDS ORDERED: amLODIPine BESYLATE 5 MG TABLET PO SCH (11:30)
[2018-08-15 11:43] VITALS: BP 127/94
--- NOTE | 2018-08-15 11:43 | PDOC3 ---
Discharge Summary Date of Admission: Aug 13, 2018 Date of Discharge: Aug 15, 2018 Follow-Up: 3-5 days Admitting Diagnosis comment: History of Present Illness History of Present Illness ASSESSMENT AND PLAN: Dizziness and headache. MORBID OBESITY ORTHOSTASIS STRESS AND ANXIETY UNCONTROLLED HYPERTENSION admitted. NORVASC 5 MG PO DAILY consult Neurology. home meds, ORTHOSTATIC BP frequent labs, PT and OT. HOME LATER TODAY IF OK WITH NEUROLOGY, CONSIDER PSYCHOTHERAPY FOR STRESS Vitals Vitals Vital Signs Date Time Temp Pulse Resp B/P (MAP) Pulse Ox O2 Delivery O2 Flow Rate FiO2 08/15/18 02:58 78 149/92 (111) 08/15/18 02:56 19 97 Room Air 08/14/18 23:00 98.0 98.0 Physical Exam General: Alert, Oriented X3, Cooperative, No acute distress Heart: Regular rate, Normal S1, Normal S2, No murmurs Lungs: Clear Abdomen: Normal bowel sounds, Soft Extremities: No clubbing, No cyanosis Skin: No significant lesion Labs LABS MRI Brain with and without contrast History: Worsening headaches Technique: Multiplanar, multi sequential pre and postcontrast MR imaging was performed of the brain. Comparison: None Findings: There is mild motion. There is no evidence of recent infarct or cytotoxic edema. The ventricles, sulci, and cisterns are within normal limits in size and configuration. There is no significant midline shift, intraaxial mass effect, or focal abnormal extra-axial fluid collection. There is no significant signal abnormality of the brain parenchyma. There is no nodular parenchymal or leptomeningeal enhancement. There is preservation of the major intracranial flow-voids at the skull base. The cerebellar tonsils are normal in location. There is no significant abnormality of the pineal gland or pituitary gland. There is some patchy minimal ethmoid air cell mucosal thickening. There is mild deviation nasal septum to the left. Frontal sinus is not pneumatized. The mastoid air cells are aerated. There is preserved marrow signal of the clivus. Impression: 1. There is no significant intracranial abnormality. FINAL DIAGNOSIS Problems Medical Problems: (1) Orthostatic dizziness Status: Acute Brief Hospital Course Mr. Pedroza is a 27 old [sex] who presented with [ORTHOSTASIS ] CONDITION AT DISCHARGE: Improved Discharge Medications Current Medications Sodium Chloride 1,000 ml @ 1,000 mls/hr 1X ONCE IV Last administered on 08/13at 15:47; Start 12/20/18 at 15:45; Stop 08/13/18 at 16:44; Status DC Sodium Chloride 1,000 ml @ 100 mls/hr Q10H IV Last administered on 08/14/18at 21:08; Start 08/13/18 at 18:47; Stop 08/14/18 at 18:46; Status DC Acetaminophen (Tylenol) 1,000 mg PRN Q6HRS PRN PO PAIN Last administered on at 14:06; Start 08/13/18 at 20:45 Cetirizine HCl (ZyrTEC) 10 mg QHS PO Last administered on 08/14/18at 21:11; Start 08/14/18 at 21:00 Propranolol HCl (Inderal La) 60 mg QHS PO Last administered on 08/14/18at 21:10 ; Start 08/14/18 at 21:00 Fluoxetine HCl (PROzac) 40 mg QHS PO Last administered on 08/14/18at 21:11; Start 08/14/18 at 21:00 Lamotrigine (LaMICtal) 100 mg BID PO Last administered on 08/15/18at 08:23; Start 08/14/18 at 12:00 Topiramate (Topamax) 25 mg HS PO Last administered on 08/14/18at 21:11; Start 08/14/18 at 21:00 Gadobutrol (Gadavist) 10 mmol 1X ONCE IV Last administered on 08/14/18at 16:08 ; Start 08/14/18 at 15:45; Stop 08/14/18 at 15:46; Status DC Meclizine HCl (Antivert) 25 mg TID PO Last administered on 08/15/18at 08:23; Start 08/14/18 at 19:00 Amlodipine Besylate (Norvasc) 5 mg DAILY PO ; Start 08/15/18 at 11:30 Active Scripts Active Reported Propranolol Hcl 60 Mg Cap.sa.24h 60 Mg PO QHS Fluoxetine Hcl 40 Mg Capsule 1 Cap PO QHS Cetirizine Hcl 10 Mg Tablet 1 Tab PO QHS Lamotrigine 100 Mg Tablet 1 Tab PO HS Vital Signs Vital Signs Date Time Temp Pulse Resp B/P (MAP) Pulse Ox O2 Delivery O2 Flow Rate FiO2 08/15/18 10:11 83 21 127/94 (105) 98 Room Air 08/15/18 07:00 97.6 97.6 Labs Laboratory Tests Test 08/13/18 14:44 08/13/18 15:32 08/13/18 15:38 08/14/18 03:30 Urine Collection Type Unknown Urine Color Yellow Urine Clarity Clear Urine pH 7.0 Urine Specific [place] 1.025 Urine Protein Negative mg/dL (NEG-TRACE) Urine Glucose (UA) Negative mg/dL (NEG) Urine Ketones (Stick) Negative mg/dL (NEG) Urine Blood Negative (NEG) Urine Nitrite Negative (NEG) Urine Bilirubin Negative (NEG) Urine Urobilinogen Dipstick 0.2 mg/dL (0.2 mg/dL) Urine Leukocyte Esterase Negative (NEG) Urine RBC 0 /HPF (0-2) Urine WBC 0 /HPF (0-4) Urine Squamous Epithelial Cells Occ /LPF Urine Bacteria 0 /HPF (0-FEW) Urine Mucus Marked /LPF Sodium Level 142 mmol/L (136-145) 143 mmol/L (136-145) Potassium Level 4.3 mmol/L (3.5-5.1) 3.7 mmol/L (3.5-5.1) Chloride Level 103 mmol/L (98-107) 105 mmol/L (98-107) Carbon Dioxide Level 26 mmol/L (21-32) 29 mmol/L (21-32) Anion Gap 13 (6-14) 9 (6-14) Blood Urea Nitrogen 15 mg/dL (8-26) 18 mg/dL (8-26) Creatinine 0.9 mg/dL (0.7-1.3) 1.0 mg/dL (0.7-1.3) Estimated GFR (Cockcroft-Gault) 102.0 90.3 BUN/Creatinine Ratio 17 (6-20) Glucose Level 90 mg/dL (70-99) 85 mg/dL (70-99) Calcium Level 9.5 mg/dL (8.5-10.1) 9.0 mg/dL (8.5-10.1) Magnesium Level 2.1 mg/dL (1.8-2.4) Total Bilirubin 0.4 mg/dL (0.2-1.0) Aspartate Amino Transf (AST/SGOT) 25 U/L (15-37) Alanine Aminotransferase (ALT/SGPT) 39 U/L (16-63) Alkaline Phosphatase 57 U/L (46-116) Troponin I Quantitative < 0.017 ng/mL (0.000-0.055) Total Protein 7.6 g/dL (6.4-8.2) Albumin 4.2 g/dL (3.4-5.0) Albumin/Globulin Ratio 1.2 (1.0-1.7) White Blood Count 9.4 x10^3/uL (4.0-11.0) 8.3 x10^3/uL (4.0-11.0) Red Blood Count 4.77 x10^6/uL (4.30-5.70) 4.48 x10^6/uL (4.30-5.70) Hemoglobin 14.1 g/dL (13.0-17.5) 13.7 g/dL (13.0-17.5) Hematocrit 42.0 % (39.0-53.0) 39.9 % (39.0-53.0) Mean Corpuscular Volume 88 fL (79-100) 89 fL (79-100) Mean Corpuscular Hemoglobin 30 pg (25-35) 31 pg (25-35) Mean Corpuscular Hemoglobin Concent 34 g/dL (31-37) 34 g/dL (31-37) Red Cell Distribution Width 13.3 % (11.5-14.5) 13.5 % (11.5-14.5) Platelet Count 259 x10^3/uL (140-400) 222 x10^3/uL (140-400) Neutrophils (%) (Auto) 66 % (31-73) 53 % (31-73) Lymphocytes (%) (Auto) 26 % (24-48) 36 % (24-48) Monocytes (%) (Auto) 6 % (0-9) 8 % (0-9) Eosinophils (%) (Auto) 2 % (0-3) 2 % (0-3) Basophils (%) (Auto) 1 % (0-3) 1 % (0-3) Neutrophils # (Auto) 6.2 x10^3uL (1.8-7.7) 4.3 x10^3uL (1.8-7.7) Lymphocytes # (Auto) 2.4 x10^3/uL (1.0-4.8) 3.0 x10^3/uL (1.0-4.8) Monocytes # (Auto) 0.6 x10^3/uL (0.0-1.1) 0.7 x10^3/uL (0.0-1.1) Eosinophils # (Auto) 0.1 x10^3/uL (0.0-0.7) 0.2 x10^3/uL (0.0-0.7) Basophils # (Auto) 0.1 x10^3/uL (0.0-0.2) 0.0 x10^3/uL (0.0-0.2) Influenza Type A Antigen Negative (NEGATIVE) Influenza Type B Antigen Negative (NEGATIVE) Test 08/14/18 14:55 08/14/18 21:40 Erythrocyte Sedimentation Rate 10 (0-15) Urine Opiates Screen Neg (NEG) Urine Methadone Screen Neg (NEG) Urine Barbiturates Neg (NEG) Urine Phencyclidine Screen Neg (NEG) Urine Amphetamine/Methamphetamine Neg (NEG) Urine Benzodiazepines Screen Neg (NEG) Urine Cocaine Screen Neg (NEG) Urine Cannabinoids Screen Neg (NEG) Urine Ethyl Alcohol Neg (NEG) Laboratory Tests Test 08/14/18 14:55 08/14/18 21:40 Erythrocyte Sedimentation Rate 10 (0-15) Urine Opiates Screen Neg (NEG) Urine Methadone Screen Neg (NEG) Urine Barbiturates Neg (NEG) Urine Phencyclidine Screen Neg (NEG) Urine Amphetamine/Methamphetamine Neg (NEG) Urine Benzodiazepines Screen Neg (NEG) Urine Cocaine Screen Neg (NEG) Urine Cannabinoids Screen Neg (NEG) Urine Ethyl Alcohol Neg (NEG) Allergies Allergies Coded Allergies Type Severity Reaction Last Updated Verified No Known Drug Allergies 08/13/18 No Disposition/Orders: D/C to Home Patient Instructions D/C PLANNING 25 MIN BEATRIZ CERRATO MD Aug 15, 2018 11:43
--- NOTE | 2018-08-15 11:44 | DISCH ---
DISCHARGE INSTRUCTIONS Condition on Discharge Condition on Discharge: Stable Activity After Discharge Activity Instructions for Disc: Activity as tolerated Lifting Instructions after Dis: No heavy lifting, No pulling or pushing Exercise Instruction after Dis: Walk 10 min, 3 x per day Driving Instructions after Dis: Do not drive today Diet after Discharge Diet after Discharge: Cardiac Checks after Discharge Checks after discharge: Check blood press - daily Contacting the DRIsabel after DC Call your doctor for: If your condition worsens BEATRIZ CERRATO MD Aug 15, 2018 11:44
[2018-08-15] MEDS ORDERED: TOPI25TA52 PO (11:47)
[2018-08-15] MEDS ORDERED: AMLO5TAB7 PO (11:47)
--- NOTE | 2018-08-15 13:24 | PDOC ---
PROGRESS NOTES Assessment Problems Medical Problems: (1) Orthostatic dizziness Status: Acute Worsening of headaches, migraine type. Dizziness, orthostatic type. Tinnitus. Sinus congestion, usually not relevant on MRI scan Plan Topamax 25 mg HS for 1 week, then 50 mg at bedtime for 1 week, then 75 mg at bedtime for 1 week, then 100 mg at bedtime thereafter. Side effects discussed. Prescription written. Follow-up with Dr. Whitmore in 1 month, instruction given to patient and nurse but as I write this, patient is ready discharged, so I could not make a follow-up order in the medical record Discharged Subjective Headache is gone right now. No longer dizzy. Objective Vital Signs Date Time Temp Pulse Resp B/P (MAP) Pulse Ox O2 Delivery O2 Flow Rate FiO2 08/15/18 11:43 83 127/94 08/15/18 10:11 21 98 Room Air 08/15/18 07:00 97.6 97.6 Intake and Output 08/15/18 07:01 Intake Total 1380 ml Balance 1380 ml Intake Oral 1380 ml # Voids 6 PHYSICAL EXAM Alert. Oriented to time, place and person. PERRL. EOMI. CN: no focal findings. Muscle tone: normal. Muscle strength:5/5 DTR: 2+ Plantar reflex: Flexor Gait: Normal. Sensory exam: no abnormal findings. No cerebellar signs elicited. Review of Relevant I have reviewed the following items jesus (where applicable) has been applied. Labs Laboratory Tests Test 08/13/18 14:44 08/13/18 15:32 08/13/18 15:38 08/14/18 03:30 Urine Collection Type Unknown Urine Color Yellow Urine Clarity Clear Urine pH 7.0 Urine Specific [place] 1.025 Urine Protein Negative mg/dL (NEG-TRACE) Urine Glucose (UA) Negative mg/dL (NEG) Urine Ketones (Stick) Negative mg/dL (NEG) Urine Blood Negative (NEG) Urine Nitrite Negative (NEG) Urine Bilirubin Negative (NEG) Urine Urobilinogen Dipstick 0.2 mg/dL (0.2 mg/dL) Urine Leukocyte Esterase Negative (NEG) Urine RBC 0 /HPF (0-2) Urine WBC 0 /HPF (0-4) Urine Squamous Epithelial Cells Occ /LPF Urine Bacteria 0 /HPF (0-FEW) Urine Mucus Marked /LPF Sodium Level 142 mmol/L (136-145) 143 mmol/L (136-145) Potassium Level 4.3 mmol/L (3.5-5.1) 3.7 mmol/L (3.5-5.1) Chloride Level 103 mmol/L (98-107) 105 mmol/L (98-107) Carbon Dioxide Level 26 mmol/L (21-32) 29 mmol/L (21-32) Anion Gap 13 (6-14) 9 (6-14) Blood Urea Nitrogen 15 mg/dL (8-26) 18 mg/dL (8-26) Creatinine 0.9 mg/dL (0.7-1.3) 1.0 mg/dL (0.7-1.3) Estimated GFR (Cockcroft-Gault) 102.0 90.3 BUN/Creatinine Ratio 17 (6-20) Glucose Level 90 mg/dL (70-99) 85 mg/dL (70-99) Calcium Level 9.5 mg/dL (8.5-10.1) 9.0 mg/dL (8.5-10.1) Magnesium Level 2.1 mg/dL (1.8-2.4) Total Bilirubin 0.4 mg/dL (0.2-1.0) Aspartate Amino Transf (AST/SGOT) 25 U/L (15-37) Alanine Aminotransferase (ALT/SGPT) 39 U/L (16-63) Alkaline Phosphatase 57 U/L (46-116) Troponin I Quantitative < 0.017 ng/mL (0.000-0.055) Total Protein 7.6 g/dL (6.4-8.2) Albumin 4.2 g/dL (3.4-5.0) Albumin/Globulin Ratio 1.2 (1.0-1.7) White Blood Count 9.4 x10^3/uL (4.0-11.0) 8.3 x10^3/uL (4.0-11.0) Red Blood Count 4.77 x10^6/uL (4.30-5.70) 4.48 x10^6/uL (4.30-5.70) Hemoglobin 14.1 g/dL (13.0-17.5) 13.7 g/dL (13.0-17.5) Hematocrit 42.0 % (39.0-53.0) 39.9 % (39.0-53.0) Mean Corpuscular Volume 88 fL (79-100) 89 fL (79-100) Mean Corpuscular Hemoglobin 30 pg (25-35) 31 pg (25-35) Mean Corpuscular Hemoglobin Concent 34 g/dL (31-37) 34 g/dL (31-37) Red Cell Distribution Width 13.3 % (11.5-14.5) 13.5 % (11.5-14.5) Platelet Count 259 x10^3/uL (140-400) 222 x10^3/uL (140-400) Neutrophils (%) (Auto) 66 % (31-73) 53 % (31-73) Lymphocytes (%) (Auto) 26 % (24-48) 36 % (24-48) Monocytes (%) (Auto) 6 % (0-9) 8 % (0-9) Eosinophils (%) (Auto) 2 % (0-3) 2 % (0-3) Basophils (%) (Auto) 1 % (0-3) 1 % (0-3) Neutrophils # (Auto) 6.2 x10^3uL (1.8-7.7) 4.3 x10^3uL (1.8-7.7) Lymphocytes # (Auto) 2.4 x10^3/uL (1.0-4.8) 3.0 x10^3/uL (1.0-4.8) Monocytes # (Auto) 0.6 x10^3/uL (0.0-1.1) 0.7 x10^3/uL (0.0-1.1) Eosinophils # (Auto) 0.1 x10^3/uL (0.0-0.7) 0.2 x10^3/uL (0.0-0.7) Basophils # (Auto) 0.1 x10^3/uL (0.0-0.2) 0.0 x10^3/uL (0.0-0.2) Influenza Type A Antigen Negative (NEGATIVE) Influenza Type B Antigen Negative (NEGATIVE) Test 08/14/18 14:55 08/14/18 21:40 Erythrocyte Sedimentation Rate 10 (0-15) Urine Opiates Screen Neg (NEG) Urine Methadone Screen Neg (NEG) Urine Barbiturates Neg (NEG) Urine Phencyclidine Screen Neg (NEG) Urine Amphetamine/Methamphetamine Neg (NEG) Urine Benzodiazepines Screen Neg (NEG) Urine Cocaine Screen Neg (NEG) Urine Cannabinoids Screen Neg (NEG) Urine Ethyl Alcohol Neg (NEG) Laboratory Tests Test 08/14/18 14:55 08/14/18 21:40 Erythrocyte Sedimentation Rate 10 (0-15) Urine Opiates Screen Neg (NEG) Urine Methadone Screen Neg (NEG) Urine Barbiturates Neg (NEG) Urine Phencyclidine Screen Neg (NEG) Urine Amphetamine/Methamphetamine Neg (NEG) Urine Benzodiazepines Screen Neg (NEG) Urine Cocaine Screen Neg (NEG) Urine Cannabinoids Screen Neg (NEG) Urine Ethyl Alcohol Neg (NEG) Medications Current Medications Sodium Chloride 1,000 ml @ 1,000 mls/hr 1X ONCE IV Last administered on 08/13at 15:47; Start 08/13/18 at 15:45; Stop 08/13/18 at 16:44; Status DC Sodium Chloride 1,000 ml @ 100 mls/hr Q10H IV Last administered on 08/14/18at 21:08; Start 08/13/18 at 18:47; Stop 08/14/18 at 18:46; Status DC Acetaminophen (Tylenol) 1,000 mg PRN Q6HRS PRN PO PAIN Last administered on at 14:06; Start 08/13/18 at 20:45; Stop 08/15/18 at 12:54; Status DC Cetirizine HCl (ZyrTEC) 10 mg QHS PO Last administered on 08/14/18at 21:11; Start 08/14/18 at 21:00; Stop 08/15/18 at 12:54; Status DC Propranolol HCl (Inderal La) 60 mg QHS PO Last administered on 08/14/18at 21:10 ; Start 08/14/18 at 21:00; Stop 08/15/18 at 12:54; Status DC Fluoxetine HCl (PROzac) 40 mg QHS PO Last administered on 08/14/18at 21:11; Start 08/14/18 at 21:00; Stop 08/15/18 at 12:54; Status DC Lamotrigine (LaMICtal) 100 mg BID PO Last administered on 08/15/18at 08:23; Start 08/14/18 at 12:00; Stop 08/15/18 at 12:54; Status DC Topiramate (Topamax) 25 mg HS PO Last administered on 08/14/18at 21:11; Start 08/14/18 at 21:00; Stop 08/15/18 at 12:54; Status DC Gadobutrol (Gadavist) 10 mmol 1X ONCE IV Last administered on 08/14/18at 16:08 ; Start 08/14/18 at 15:45; Stop 08/14/18 at 15:46; Status DC Meclizine HCl (Antivert) 25 mg TID PO Last administered on 08/15/18at 08:23; Start 08/14/18 at 19:00; Stop 08/15/18 at 12:54; Status DC Amlodipine Besylate (Norvasc) 5 mg DAILY PO Last administered on 08/15/18at 11: 43; Start 08/15/18 at 11:30; Stop 08/15/18 at 12:54; Status DC Active Scripts Active Topamax (Topiramate) 25 Mg Tablet 25 Mg PO HS 30 Days Amlodipine Besylate 5 Mg Tablet 5 Mg PO DAILY 30 Days Reported Propranolol Hcl 60 Mg Cap.sa.24h 60 Mg PO QHS Fluoxetine Hcl 40 Mg Capsule 1 Cap PO QHS Cetirizine Hcl 10 Mg Tablet 1 Tab PO QHS Lamotrigine 100 Mg Tablet 1 Tab PO HS Vitals/I & O Vital Sign - Last 24 Hours 08/14/18 08/14/18 08/14/18 08/14/18 19:00 20:00 21:10 23:00 Temp 98.1 98.0 98.1 98.0 Pulse 78 78 78 Resp 18 19 B/P (MAP) 151/72 (98) 151/72 148/82 (104) Pulse Ox 97 98 O2 Delivery Room Air Room Air Room Air 08/15/18 08/15/18 08/15/18 08/15/18 02:56 02:58 02:58 07:00 Temp 97.6 97.6 Pulse 65 82 78 81 Resp 19 21 B/P (MAP) 144/90 (108) 163/97 (119) 149/92 (111) 150/99 (116) Pulse Ox 97 96 O2 Delivery Room Air Room Air 08/15/18 08/15/18 08/15/1808/15/18 08:00 10:10 10:11 11:43 Pulse 86 83 83 Resp 21 21 B/P (MAP) 143/89 (107) 127/94 (105) 127/94 Pulse Ox 96 98 O2 Delivery Room Air Room Air Room Air Intake and Output 08/14/18 08/14/18 08/15/18 15:01 23:01 07:01 Intake Total 360 ml 180 ml 840 ml Balance 360 ml 180 ml 840 ml Images MRI Brain with and without contrast There is mild motion. There is no evidence of recent infarct or cytotoxic edema. The ventricles, sulci, and cisterns are within normal limits in size and configuration. There is no significant midline shift, intraaxial mass effect, or focal abnormal extra-axial fluid collection. There is no significant signal abnormality of the brain parenchyma. There is no nodular parenchymal or leptomeningeal enhancement. There is preservation of the major intracranial flow-voids at the skull base. The cerebellar tonsils are normal in location. There is no significant abnormality of the pineal gland or pituitary gland. There is some patchy minimal ethmoid air cell mucosal thickening. There is mild deviation nasal septum to the left. Frontal sinus is not pneumatized. The mastoid air cells are aerated. There is preserved marrow signal of the clivus. Impression: 1. There is no significant intracranial abnormality. JOEL YOUSIF MD Aug 15, 2018 13:24
== END 2018-08-15 12:40 | disposition home or self-care (01) ==
LOC: ER 13:34 → 5 NORTH 18:30
PROVIDERS: ADMIT Internal Medicine; ATTEND Internal Medicine
DX: R42 Dizziness and giddiness (principal); R51 Headache; E66.01 Morbid (severe) obesity due to excess calories; F41.9 Anxiety disorder, unspecified; I10 Essential (primary) hypertension; G43.909 Migraine, unspecified, not intractable, without status migrainosus; F31.9 Bipolar disorder, unspecified; H93.19 Tinnitus, unspecified ear; Z79.899 Other long term (current) drug therapy; Z90.49 Acquired absence of other specified parts of digestive tract; Z82.49 Family history of ischemic heart disease and other diseases of the circulatory system
CPT/HCPCS: 36415; 70450; 70553; 80048; 80053; 80307; 81001; 83735; 84484; 85025; 85651; 87804; 93005; 96361; 96374; 99284; A9585; G0378; J7030; J8597; G0379

== ENCOUNTER → 2020-09-27 | Outpatient (CLI) | payer OTHER ==
[~2020-09-27] MED LIST: AMLO-186 PO; CETI10TA16 PO; FLUO40CA2 PO; LAMO100T8 PO; PROP60CA44 PO; TOPI25TA52 PO
--- NOTE | 2020-09-27 19:05 | RAD ---
Exam: Left knee 2 views INDICATION: Left knee pain TECHNIQUE: Frontal and lateral views the left knee Comparisons: None FINDINGS: Bone mineralization is normal. No acute or healed fractures. Soft tissues are unremarkable. Joint spa vinod are well-maintained. IMPRESSION: No acute osseous abnormality. Electronically signed by: Robin Gr MD (09/27/2020 7:02 PM) MICHELLE
== END ==
LOC: RAD 10:57
DX: M17.12 Unilateral primary osteoarthritis, left knee (principal)
CPT/HCPCS: 73560